=== PATIENT | female | born 1995 | race Asian ===

== ENCOUNTER 2018-11-08 22:21 | Emergency (ER) | payer OTHER ==
[~2018-11-08] VITALS: Ht 162.6 cm; Wt 72.6 kg
[2018-11-08 22:24] VITALS: BP_SYST 118
== END 2018-11-08 23:24 | disposition home or self-care (01) ==
LOC: SED 22:21
DX: J02.0 Streptococcal pharyngitis (principal)
CPT/HCPCS: 36415; 81025; 86710; 99283

== ENCOUNTER 2021-07-05 23:48 | Emergency (ER) | payer BC, SELFPAY ==
[~2021-07-05] VITALS: Ht 162.6 cm; Wt 49.9 kg
[2021-07-06] VITALS: BP_SYST 113
[2021-07-06] MEDS ORDERED: AMOXICILLIN/CLAVULANATE POTASSIUM 500 MG TABLET PO ONE (00:15)
[2021-07-06] MEDS ORDERED: ACETAMINOPHEN 500 MG TABLET PO ONE (00:15)
[2021-07-06 00:49] LABS: BASOPHILS % (AUTO) 0.3 % (0.0-2.0); EOSINOPHILS # (AUTO) 0.1 K/uL (0.0-0.4); EOSINOPHILS % (AUTO) 0.6 % (0.0-4.0); HEMATOCRIT 40.2 % (36-48); HEMOGLOBIN 13.2 g/dL (12.0-16.0); LYMPHOCYTES # (AUTO) 0.4 K/uL (1.0-5.5); LYMPHOCYTES % (AUTO) 4.3 % (20.5-51.5); MEAN CORPUSCULAR HEMOGLOBIN 27 pg (27-31); MEAN CORPUSCULAR HGB CONC 33 % (32-36); MEAN CORPUSCULAR VOLUME 82 fL (79.0-98.0); MONOCYTES # (AUTO) 0.4 K/uL (0.0-1.0); MONOCYTES % (AUTO) 4.3 % (1.7-9.3); NEUTROPHILS # (AUTO) 7.9 K/uL (1.8-7.7); NEUTROPHILS % (AUTO) 90.5 % (40.0-70.0); PLATELET COUNT (AUTO) 306 K/uL (130-430); RED BLOOD CELL COUNT(AUTO) 4.89 MIL/uL (4.2-6.2); RED CELL DISTRIBUTION WIDTH 12.7 % (9.0-15.0); WHITE BLOOD COUNT (AUTO) 8.8 K/uL (4.8-10.8)
[2021-07-06 01:32] LABS: CALCIUM 9.2 mg/dL (8.4-11.0); CREATININE 0.93 mg/dL (0.55-1.30); POTASSIUM 3.2 mmol/L (3.5-5.1)
[2021-07-06 01:38] LABS: ALBUMIN 4.2 g/dL (3.4-4.8); TOTAL BILIRUBIN 0.5 mg/dL (0.0-1.0)
[2021-07-06] MEDS ORDERED: POTASSIUM CHLORIDE 20 MEQ TAB.PRT.SR PO ONE (01:45)
[2021-07-06] MEDS ORDERED: AMOX-423 PO (03:56)
[2021-07-06 04:11] VITALS: BP_SYST 101
== END 2021-07-06 04:12 | disposition home or self-care (01) ==
LOC: SED 23:48
DX: R51.9 Headache, unspecified (principal); R50.9 Fever, unspecified; Z20.822 Contact with and (suspected) exposure to COVID-19
CPT/HCPCS: 36415; 70450; 70487; 76376; 80053; 83605; 84703; 85025; 86710; 87040; 87426; 99285; Q9967